=== PATIENT | male | born 1960 | race Caucasian/White ===

== ENCOUNTER 2018-02-23 08:54 | Day surgery (SDC) | payer OTHER ==
[2018-02-23] MEDS: NS 1,000 ML IV (09:15)
[2018-02-23] MEDS ORDERED: PROPOFOL 500 MG/50 ML VIAL As Ordered (10:25)
[2018-02-23] MEDS ORDERED: LIDOCAINE 2% INJ 100 MG/5 ML SDV (FOR ANES.) As Ordered (10:25)
[2018-02-23] MEDS ORDERED: fentaNYL 100 MCG/2 ML INJECTION (J3010) As Ordered (10:25)
== END 2018-02-23 11:25 | disposition home or self-care (01) ==
LOC: M OPP 08:54
DX: Z09 Encounter for follow-up examination after completed treatment for conditions other than malignant neoplasm (principal); K62.5 Hemorrhage of anus and rectum; K64.0 First degree hemorrhoids; K57.30 Diverticulosis of large intestine without perforation or abscess without bleeding; R12 Heartburn; Z87.19 Personal history of other diseases of the digestive system; I10 Essential (primary) hypertension; E78.5 Hyperlipidemia, unspecified; E11.9 Type 2 diabetes mellitus without complications; K21.9 Gastro-esophageal reflux disease without esophagitis; Z91.041 Radiographic dye allergy status; Z88.3 Allergy status to other anti-infective agents; Z79.82 Long term (current) use of aspirin; Z79.899 Other long term (current) drug therapy; Z79.84 Long term (current) use of oral hypoglycemic drugs; Z87.891 Personal history of nicotine dependence
CPT/HCPCS: 45378